=== PATIENT | female | born 1965 | race Caucasian/White ===

== ENCOUNTER → 2017-11-29 | Outpatient (CLI) | payer BC ==
[~2017-11-29] MED LIST: ACYC400 PO; ALBU90OI INH; ATEN25 PO; FURO20 PO; POTCHL10ER PO
== END ==
LOC: LAB SHORT 11:38 → OLS 11:38
PROVIDERS: Obstetrics & Gynecology Gynecology
DX: Z12.4 Encounter for screening for malignant neoplasm of cervix (principal)
CPT/HCPCS: 87624; G0123

== ENCOUNTER → 2018-12-07 | Outpatient (CLI) | payer BC ==
[2018-12-10 15:07] LABS: HPV 16 Negative (Negative); HPV 18 Negative (Negative); HPV OTHER HR TYPES Negative (Negative)
== END | disposition home or self-care (01) ==
LOC: LAB SHORT 13:09 → LAB 13:09
PROVIDERS: Obstetrics & Gynecology Gynecology
DX: Z12.4 Encounter for screening for malignant neoplasm of cervix (principal)
CPT/HCPCS: 87624; G0123

== ENCOUNTER → 2022-10-02 | Outpatient (CLI) | payer OTHER ==
[~2022-10-02] MED LIST changes: +ALORA1 EA10 TOP; +AMLO10 PO; +CYCL10 PO; +PROG100 PO; +VENL75ER PO; +VITAMIN D310 MC4 PO; +Vitamin B Comple1 EA PO
== END | disposition home or self-care (01) ==
LOC: LAB 11:07 → LAB SHORT 11:07
DX: R31.9 Hematuria, unspecified (principal)
CPT/HCPCS: 87086